=== PATIENT | male | born 1955 | race Caucasian/White ===

== ENCOUNTER 2019-04-15 07:06 | Outpatient (CLI) | payer OTHER, SELFPAY ==
[2019-04-15 08:08] LABS: Hematocrit 46.5 % (42.0-52.0); Hemoglobin 15.1 g/dL (14.0-18.0); Mean Corpuscular HGB Conc 32.5 g/dl (32-36); Mean Corpuscular Hemoglobin 30.7 pg (26-34); Mean Corpuscular Volume 94.5 fl (80-100); Mean Platelet Volume 9.6 fl (7.4-10.4); Platelet Count Result 256 k/mm3 (150-375); Red Blood Count 4.92 M/mm3 (4.6-6.20); Red Cell Distribution Width 12.3 % (11.5-14.5); White Blood Count 8.1 K/mm3 (4.5-10.0)
[2019-04-15 08:10] LABS: Alanine Aminotransferase 19 U/L (4-50); Albumin Level 4.3 g/dL (3.5-5.1); Alkaline Phosphatase 66 U/L (38-126); Aspartate Amino Transferase 24 U/L (17-59); Blood Urea Nitrogen 23 mg/dL (9-20); Calcium 9.2 mg/dL (8.4-10.2); Carbon Dioxide 27 mmol/L (22-30); Chloride 102 mmol/L (98-107); Cholesterol 130 mg/dL (0-200); Estimated Glomerular Filt Rate > 60; Glucose 96 mg/dL (75-110); HDL Direct 38 mg/dL; Potassium 4.3 mmol/L (3.4-5.0); Sodium 143 mmol/L (137-145); Triglycerides 158 mg/dL (<150)
[2019-04-15 08:19] LABS: LDL Cholesterol Direct 70 mg/dL
[2019-04-15 08:24] LABS: Free T4 Free Thyroxine 0.98 ng/mL (0.78-2.19)
== END 2019-04-15 07:07 | disposition home or self-care (01) ==
PROVIDERS: PCP Family Medicine; Visit Provider Family Medicine
DX: C13.8 Malignant neoplasm of overlapping sites of hypopharynx (principal); E78.2 Mixed hyperlipidemia; R94.6 Abnormal results of thyroid function studies
CPT/HCPCS: 36415; 80053; 80061; 84439; 84443; 85027

== ENCOUNTER 2019-11-09 07:04 | Outpatient (CLI) | payer MEDICARE, SELFPAY ==
[2019-11-09 07:53] LABS: Alanine Aminotransferase 21 U/L (4-50); Albumin Level 4.5 g/dL (3.5-5.1); Alkaline Phosphatase 62 U/L (38-126); Anion Gap 6 mmol/L (8-16); Aspartate Amino Transferase 27 U/L (17-59); Bilirubin,Total 0.7 mg/dL (0.2-1.3); Blood Urea Nitrogen 21 mg/dL (9-20); Calcium 9.1 mg/dL (8.4-10.2); Carbon Dioxide 29 mmol/L (22-30); Chloride 104 mmol/L (98-107); Cholesterol 135 mg/dL (0-200); Estimated Glomerular Filt Rate > 60; Glucose 101 mg/dL (75-110); HDL Direct 38 mg/dL; Sodium 139 mmol/L (137-145); Triglycerides 109 mg/dL (<150)
[2019-11-09 08:00] LABS: LDL Cholesterol Direct 73 mg/dL
[2019-11-09 08:20] LABS: Prostate Specific Antigen 0.5 ng/mL (< OR = 4.0)
[2019-11-09 08:30] LABS: Free T4 Free Thyroxine 0.93 ng/mL (0.78-2.19)
[2019-11-09 08:48] LABS: Potassium 4.3 mmol/L (3.4-5.0)
[2019-11-09 09:39] LABS: Free T4 Free Thyroxine Reflex 0.91 ng/dL (0.78-2.19)
[2019-11-09 11:16] LABS: Total Triiodothyronine (T3) 1.78 NG/ML (0.97-1.69)
== END 2019-11-09 07:05 | disposition home or self-care (01) ==
PROVIDERS: PCP Family Medicine; Visit Provider Family Medicine
DX: R94.6 Abnormal results of thyroid function studies (principal); Z12.5 Encounter for screening for malignant neoplasm of prostate; E78.2 Mixed hyperlipidemia
CPT/HCPCS: 36415; 80053; 80061; 84153; 84439; 84443; 84480; G0103

== ENCOUNTER 2019-12-15 07:44 | Outpatient (CLI) | payer MEDICARE, SELFPAY ==
--- NOTE | ~2019-12-15 | US_ITS ---
EXAMINATION: US aorta [facility] DATE: 12/15/2019 08:11 INDICATION: Abdominal aortic aneurysm screening with hypercholesterolemia and nicotine dependence. TECHNIQUE: Grayscale, color Doppler, and pulsed Doppler images of the aorta and common iliac arteries were obtained. COMPARISON: None. FINDINGS: The proximal aorta measures 2.4 cm. The mid aorta measures 2.3 cm. The distal aorta measures 1.8 cm.. There are scattered atherosclerotic disease in the abdominal aorta without hemodynamically significa nt stenosis. The right common iliac artery measures 1.7 cm. The left common iliac artery measures 1.6 cm. IMPRESSION: 1. Normal caliber abdominal aorta. Reviewed, dictated and finalized at location A.
== END 2019-12-15 07:45 | disposition home or self-care (01) ==
PROVIDERS: PCP Family Medicine; Visit Provider Family Medicine
DX: Z87.891 Personal history of nicotine dependence (principal)
CPT/HCPCS: 76706

== ENCOUNTER 2020-05-15 06:54 | Outpatient (CLI) | payer MEDICARE, SELFPAY ==
[2020-05-15 07:47] LABS: Alanine Aminotransferase 23 U/L (4-50); Albumin Level 4.3 g/dL (3.5-5.1); Alkaline Phosphatase 63 U/L (38-126); Anion Gap 6 mmol/L (8-16); Aspartate Amino Transferase 30 U/L (17-59); Bilirubin,Total 0.7 mg/dL (0.2-1.3); Blood Urea Nitrogen 28 mg/dL (9-20); Calcium 9.1 mg/dL (8.4-10.2); Carbon Dioxide 29 mmol/L (22-30); Chloride 107 mmol/L (98-107); Cholesterol 139 mg/dL (0-200); Estimated Glomerular Filt Rate > 60; Glucose 100 mg/dL (75-110); HDL Direct 44 mg/dL; Potassium 4.3 mmol/L (3.4-5.0); Sodium 142 mmol/L (137-145); Triglycerides 104 mg/dL (<150)
[2020-05-15 07:58] LABS: LDL Cholesterol Direct 75 mg/dL
[2020-05-15 11:41] LABS: Free T4 Free Thyroxine Reflex 0.99 ng/dL (0.78-2.19)
[2020-05-15 12:28] LABS: Total Triiodothyronine (T3) 1.83 NG/ML (0.97-1.69)
== END 2020-05-15 06:55 | disposition home or self-care (01) ==
PROVIDERS: PCP Family Medicine; Visit Provider Family Medicine
DX: R94.6 Abnormal results of thyroid function studies (principal); Z92.3 Personal history of irradiation; E78.2 Mixed hyperlipidemia
CPT/HCPCS: 36415; 80053; 80061; 84439; 84443; 84480

== ENCOUNTER 2020-08-23 15:19 | Inpatient (IN) | payer MEDICARE, SELFPAY ==
[2020-08-23] VITALS (15 sets, daily range): BP systolic 136–161; BP diastolic 84–93; PULSE 75–89; RESP 10–22; TEMP 36.6; O2SAT 96–98; BMI 25.4
--- NOTE | ~2020-08-23 | CT_ITS ---
EXAMINATION: CT brain wo con DATE: 08/23/2020 15:35 INDICATION: Confusion. Right hemiparesis. TECHNIQUE: Computed tomography (CT) of the head was performed without intravenous contrast. The mA wa s adjusted according to patient size. Iterative reconstruction technique was employed. The dose-lengt h product was 605.33 mGy-cm. COMPARISON: None FINDINGS: There is no intracranial hemorrhage, acute infarction, or abnormal intracranial mass lesion . The ventricles are normal in size. There is mucosal thickening in the paranasal sinuses with thicke mitchell and sclerosis of some of the ethmoid sinuses, consistent with chronic sinusitis. The mastoid air cells are normal. The orbits are normal. IMPRESSION: 1. Normal brain. Reviewed, dictated and finalized at location A. IMPRESSION: 1. Normal brain.
--- NOTE | ~2020-08-23 | MR_ITS ---
EXAMINATION: MR brain/brain stem wo/w con DATE: 08/24/2020 11:53 INDICATION: Transient ischemic attack. TECHNIQUE: Magnetic resonance imaging (MRI) of the brain and brainstem was performed without and with 15 mL MultiHance intravenous contrast. Sequences included sagittal and axial T1-weighted FSE, axial diffusion-weighted FS EPI, axial T2*-weighted GRE, axial T2-weighted FLAIR Propeller, and axial T2-we ighted Propeller. Postcontrast sequences included axial and coronal T1-weighted FSE. Apparent diffusi on coefficient (ADC) maps were created. COMPARISON: Head CT 08/23/2020 FINDINGS: There are patchy areas of acute infarct in the right frontal and parietal lobes and right b osvaldo ganglia. There is no intracranial hemorrhage or abnormal mass lesion. There are scattered areas of nonspecific increased T2-weighted signal intensity in the cerebral white matter, which is within n ormal limits for the patient's age. The ventricles are normal in size. There is mucosal thickening in the paranasal sinuses. There is a trace right mastoid effusion. The orbits are normal. IMPRESSION: 1. Patchy areas of acute infarct in the right frontal and parietal lobes and right basal ganglia. Reviewed, dictated and finalized at location A. IMPRESSION: 1. Patchy areas of acute infarct in the right frontal and parietal lobes and ri ght basal ganglia.
--- NOTE | ~2020-08-23 | CT_ITS ---
EXAMINATION: CTA brain carotid EXAM DATE: 08/23/2020 15:57 INDICATION: Aphasia. Right arm hemiparesis. TECHNIQUE: Noncontrast head CT. Spiral CTA of the carotid arteries was performed with intravenous i njection 100 cc of Omnipaque 350. Axial, coronal, sagittal reformatted images reviewed. Additional r eformatted images created on dedicated 3-D workstation. NASCET comparable standard used to assess th e degree of arterial stenosis. Spiral CT angiogram cerebral arteries performed with the same intrave nous injection of contrast. Source images of the brain CTA transferred to dedicated workstation for 3 -D rotational image creation. Coronal, sagittal maximum intensity pixel images also reviewed. The d ose-length product (DLP) for this examination was 1158.10 mGy-cm. The exposure was tailored accordi ng to patient size, and iterative reconstruction (ASIR) was used as additional dose reduction techniq ue. Correlation is made to noncontrast head CT same date. Correlation was made with CT neck 08/16/2010 . FINDINGS: Surgical clips next to the right internal carotid artery, could be from lymph node dissecti on but correlate with prior history. External jugular vein also appears resected. Carotid bulb is widely patent. Just distal to the right carotid bulbs there is 30% carotid stenosis. On the left there is 0% carotid stenosis. The left vertebral artery is dominant. Carotid siphons are widely patent. There is no carotid or vertebral basilar arterial dissection or fibromuscular dysplas ia. There are no cerebral artery aneurysms. There is symmetric cerebral artery arborization. The sagi ttal, transverse and sigmoid sinuses enhance normally, no venous sinus thrombosis. Internal cerebral veins also enhance normally. Incidental Findings: Right neck surgical changes. Left internal jugular chain lymphadenopathy, with a node at the level of the hyoid bone measuring 2.6 x 1.6 cm. Another necrotic smaller lymph node loc ated external to the carotid bifurcation. Asymmetric soft tissue at the left base of the tongue which could be primary squamous cell cancer or other malignancy. These findings have developed compared to a CT neck examination from 2010. IMPRESSION: 1. No acute carotid or intracranial findings. 2. Right carotid 30% stenosis just distal to the bulb. 0% left carotid stenosis. 3. Left tongue base mass with enlarged, necrotic left internal jugular chain malignant lymphadenopat hy. 4. Right neck surgical changes. Reviewed, dictated and finalized at location A. IMPRESSION: 1. No acute carotid or intracranial findings. 2. Right carotid 30% stenosis just distal to the bulb. 0% left carotid stenosi s. 3. Left tongue base mass with enlarged, necrotic left internal jugular chain m alignant lymphadenopathy. 4. Right neck surgical changes.
--- NOTE | ~2020-08-23 | XR_ITS ---
EXAMINATION: XR chest 1V portable DATE: 08/23/2020 16:01 INDICATION: Aphasia. TECHNIQUE: A single frontal view of the chest was obtained. COMPARISON: Chest CT 08/22/2010 FINDINGS: There is mild atelectasis in the lower lung zones. No pleural effusion or pneumothorax. The heart size is normal. IMPRESSION: 1. Mild atelectasis in the lower lung zones. Reviewed, dictated and finalized at location A.
--- NOTE | ~2020-08-23 | US_ITS ---
EXAMINATION: US carotid duplex BI DATE: 08/24/2020 12:14 INDICATION: Left hemiparesis. Acute right frontal lobe and parietal lobe infarcts. TECHNIQUE: Grayscale, color Doppler, and pulsed Doppler images of the cervical carotid arteries were obtained. The degree of vessel stenosis is placed in one of the following categories: normal, <50%, 5 0-69%, >=70% but less than near-occlusion, near-occlusion, or total occlusion. Note that percent sten osis relative to normal distal artery lumen diameter is indirectly measured from velocity measurement s as described by Hans, et al. Radiology 2003; 229:340-346. COMPARISON: Neck CTA 08/23/2020 FINDINGS: There are enlarged left internal jugular chain lymph nodes measuring up to 3.4 x 1.3 x 2.5 cm. RIGHT: The right common carotid artery (CCA) peak systolic velocity (PSV) is 79 cm/s. The right internal car otid artery (ICA) PSV is 178 cm/s. The right ICA end-diastolic velocity (EDV) is 50 cm/s. The right I CA/CCA PSV ratio is 2.2. Grayscale and color Doppler images yield an estimate of <50% diameter reduct ion from plaque in the ICA. There is antegrade flow in the right vertebral artery. LEFT: The left CCA PSV is 85 cm/s. The left ICA PSV is 69 cm/s. The left ICA EDV is 27 cm/s. The left ICA/C CA PSV ratio is 0.8. Grayscale and color Doppler images yield an estimate of <50% diameter reduction from plaque in the ICA. There is antegrade flow in the left vertebral artery. IMPRESSION: 1. <50% stenosis in the right internal carotid artery. 2. <50% stenosis in the left internal carotid artery. 3. Left internal jugular chain lymphadenopathy, consistent with metastatic disease. Reviewed, dictated and finalized at location A. IMPRESSION: 1. <50% stenosis in the right internal carotid artery. 2. <50% stenosis in the left internal carotid artery. 3. Left internal jugular chain lymphadenopathy, consistent with metastatic dise ase.
--- NOTE | 2020-08-23 15:27 | ECG_ITS ---
Measurements Intervals [place] Rate: 87 P: 12 OK: 142 QRS: -20 QRSD: 81 T: -3 QT: 361 QTc: 436 Interpretive Statements SINUS RHYTHM INCOMPLETE RIGHT BUNDLE BRANCH BLOCK BORDERLINE ST-T WAVE ABNORMALITY- INFERIOR LEADS BASELINE ARTIFACT- I, II, III, AVR, AVL,A VF BORDERLINE ECG Electronically Signed On 08-23-2020 15:40:23 CDT by Toni Jade D.O.
--- NOTE | 2020-08-23 15:38 | ED.NEUROSD ---
HPI - Neuro Symptoms/Deficit General Chief Complaint: Suspected CVA Stated Complaint: neuro symptoms Time Seen by Provider: 08/23/20 15:28 Source: patient Mode of arrival: ambulatory Limitations: no limitations History of Present Illness HPI Narrative: Patient is a 65-year-old male complaining of left upper extremity numbness and difficulty concentrating start approximately 1 hour prior to arrival. According to he also had some type of aphasia but now resolved. also states that he had trouble with words and identifying things 4 days ago which only lasted briefly. Patient states that he is now feeling better and that the numbness has resolved. No aphasia upon arrival to the emergency room. Patient denies any visual disturbance, focal weakness or unsteady gait. Patient denies any chest pain, shortness of breath, abdominal pain, nausea, vomiting, fever or chills. Related Data Home Medications Medication Instructions Recorded Confirmed cetirizine 10 mg PO DAILY 08/23/20 [id number] 1 cap PO DAILY 08/23/20 [MegaRed Albin-3 Krill Oil] Allergies Allergy/AdvReac Type Severity Reaction Status Date / Time No Known Allergies Allergy Verified 08/23/20 15:43 Review of Systems Review of Systems: All systems reviewed & are unremarkable except as noted in HPI and below Constitutional: Constitutional: Denies body ache(s), Denies chills, Denies excessive sweating, Denies fatigue, Denies fever(s), Denies headache(s), Denies lethargy, Denies malaise, Denies weakness and Denies weight loss Eyes: Eyes: Denies blurry vision, Denies change in vision and Denies loss of vision ENT: Denies dizziness, Denies ear discharge, Denies headache(s), Denies lip swelling, Denies epistaxis, Denies nasal congestion, Denies neck pain, Denies throat swelling and Denies tongue swelling Cardiovascular: Cardiovascular: Denies chest pain, Denies chest pain at rest, Denies chest pain with activity, Denies diaphoresis, Denies rapid heart rate, Denies edema, Denies irregular heart rhythm, Denies lightheadedness, Denies palpitations, Denies dyspnea and Denies dyspnea on exertion Respiratory: Respiratory: Denies chest congestion, Denies cough, Denies hemoptysis, Denies dyspnea and Denies dyspnea on exertion Gastrointestinal: Gastrointestinal: Denies abdominal pain, Denies melena, Denies hematochezia, Denies diarrhea, Denies nausea, Denies vomiting and Denies hematemesis Musculoskeletal: Musculoskeletal: Denies abnormal gait, Denies deformity, Denies joint swelling, Denies limited range of motion, Denies neck pain and Denies numbness Neurologic: Denies abnormal gait, Denies dizziness, Denies headache(s), Denies focal weakness, Denies loss of vision, Denies numbness, Denies Other visual disturbances, Denies Sensory deficit (Neuro) and Denies weakness Psychiatric: Psychiatric: Denies confusion, Denies depression, Denies auditory hallucinations, Denies homicidal ideation and Denies suicidal ideation Endocrine: Endocrine: Denies cold intolerance, Denies excessive sweating, Denies fatigue, Denies heat intolerance and Denies palpitations Hematologic/Lymphatic: Hematologic/Lymphatic: Denies easy bleeding and Denies easy bruising Allergic/Immunologic: Allergic/Immunologic: Denies lip swelling, Denies throat swelling and Denies tongue swelling PMFSH Past Medical History Medical History Benign essential hypertension Borderline hypothyroidism Central stenosis of spinal canal Chronic GERD Ex-smoker FHx: prostate cancer Low back pain with sciatica 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
[2020-08-23 15:39] LABS: Glucose Point of Care 107 mg/dl (65-105)
[2020-08-23 15:49] LABS: Basophils Absolute Auto 0.1 K/mm3 (0.0-0.1); Basophils Percent Auto 0.5 % (0.2-1.2); Eosinophils Absolute Auto 0.2 K/mm3 (0-0.3); Eosinophils Percent Auto 1.8 % (0-4.4); Hematocrit 45.3 % (42.0-52.0); Hemoglobin 14.9 g/dL (14.0-18.0); Immature Granulocyte Absolute 0.04 K/mm3 (0.00-0.031); Immature Granulocyte Percent A 0.4 % (0-0.5); Lymphocytes Absolute Auto 1.62 K/mm3 (0.9-3.2); Lymphocytes Percent Auto 17.8 % (18.3-44.2); Mean Corpuscular HGB Conc 32.9 g/dl (32-36); Mean Corpuscular Hemoglobin 30.7 pg (26-34); Mean Corpuscular Volume 93.2 fl (80-100); Mean Platelet Volume 9.4 fl (7.4-10.4); Monocytes Absolute Auto 0.6 K/mm3 (0.1-0.6); Monocytes Percent Auto 6.1 % (2.6-8.5); Neutrophils Absolute Auto 6.7 K/mm3 (1.3-6.7); Neutrophils Percent Auto 73.4 % (45.5-73.1); Platelet Count Result 253 k/mm3 (150-375); Red Blood Count 4.86 M/mm3 (4.6-6.20); Red Cell Distribution Width 12.2 % (11.5-14.5); White Blood Count 9.1 K/mm3 (4.5-10.0)
[2020-08-23 15:51] LABS: Estimated CRCL calculation 48 ml/min; Estimated Glomerular Filt Rate 51
[2020-08-23 16:00] LABS: Prothrombin Time 12.8 Seconds (11.1-14.7)
[2020-08-23 16:01] LABS: Partial Thromboplastin Time 23.6 SECONDS (22.3-36.8)
[2020-08-23 16:06] LABS: Anion Gap 8 mmol/L (8-16); Blood Urea Nitrogen 23 mg/dL (9-20); Calcium 9.3 mg/dL (8.4-10.2); Carbon Dioxide 28 mmol/L (22-30); Chloride 108 mmol/L (98-107); Estimated CRCL calculation 52 ml/min; Estimated Glomerular Filt Rate 55; Glucose 111 mg/dL (75-110); Potassium 4.2 mmol/L (3.4-5.0); Sodium 144 mmol/L (137-145)
[2020-08-23 16:16] LABS: Troponin I < 0.012 ng/mL (0.000-0.034)
--- NOTE | 2020-08-23 19:52 | PC.NURSE ---
called to give report at this time. was told the room was being cleaned and they would call back when it was ready.
--- NOTE | 2020-08-23 20:33 | ADMGEN ---
This patient, Enzo Del Rosario, was admitted to [facility] Surg Room 316-01. Patient/family oriented to hospital policies and general routines including ID bracelet, bed and alarms, visiting hours, pain management, procedures, bathroom and other care routines, personal items, smoking policy, room service/diet, and visiting hours. Information on how to activate the Rapid Response Team has been discussed. Patient/Family are encouraged to report perceived risks to care and to ask questions if they do not understand what they are told or what they should do.
[2020-08-23] MEDS: LACTATED RINGERS 1,000 ML 125 ML IV CONT (21:10)
--- NOTE | 2020-08-23 21:15 | PM.IMHP ---
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 Patient had a radical neck surgery on the right in the past. The patient stated that he used to take a daily aspirin and then read that it would do him any good to take a daily aspirin. However today when the patient got out of the shower he was having difficulty moving his left arm and had difficulty finding his words. He stated that these symptoms started about 60 minutes prior to coming to the emergency room. The symptoms resolved when he came to the emergency room. According to the the patient had a similar episode approximately 4 days ago. Today the patient was given a couple aspirin by his prior to coming to the emergency room. Patient had no chest pain or shortness of breath. Head and neck CTA was read as no acute carotid or intracranial findings. Right carotid 30% stenosis just distal to the bulb. 0% left carotid stenosis. Left tongue mass with enlarged necrotic left internal jugular chain malignant lymphadenopathy. Right neck surgical changes. The patient stated that he has a checkup with his oncologist next week. The patient was made aware of his CT results in the emergency room. The patient is now moving all extremities without difficulty. The patient was started on IV fluids. Chest x-ray was read as mild atelectasis in the lower lung zones. The patient is being admitted for observation status on the date of service of 08/23/2020. Chief Complaint: Left arm numbness and tingling Review of Systems Review of Systems: All systems reviewed & are unremarkable except as noted in HPI and below Constitutional: Constitutional: Reports as per HPI and Reports no additional constitutional complaints Eyes: Eyes: Reports as per HPI and Reports no additional eye complaints ENT: Reports system reviewed and no additional complaints, except as documented and Reports Normal hearing present Cardiovascular: Cardiovascular: Reports no additional cardiovascular complaints Respiratory: Respiratory: Reports no additional respiratory complaints and Reports no additional respiratory complaints Gastrointestinal: Gastrointestinal: Reports as per HPI and Reports no additional gastrointestinal complaints Musculoskeletal: Musculoskeletal: Reports no additional musculoskeletal complaints Integumentary/Breasts: Skin/Breast: Reports system reviewed and no additional complaints, except as docu and Reports as per HPI Neurologic: Reports system reviewed and no additional complaints, except as documented, Reports as per HPI and Reports Normal hearing present Psychiatric: Psychiatric: Reports no additional psychiatric complaints and Reports as per HPI Endocrine: Endocrine: Reports no additional endocrine complaints Hematologic/Lymphatic: Hematologic/Lymphatic: Reports no additional hematologic/lymphatic complaints Allergic/Immunologic: Allergic/Immunologic: Reports no additional allergic/immunologic complaints [facility] Past Medical History Medical History (Updated 08/23/20 @ 21:27 by Neela Sharma NP) Benign essential hypertension Borderline hypothyroidism Central stenosis of spinal canal Chronic GERD Ex-smoker FHx: prostate cancer Low back pain with sciatica 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
--- NOTE | 2020-08-24 | ECHO_ITS ---
Patient Info Name: Enzo Del Rosario Age: 65 years : 1955 Gender: Male Ht: 70 in Wt: 177 lbs BSA: 2.00 m2 HR: 65 bpm BP: 138 / 65 mmHg Heart Rhythm: Sinus Rhythm Technical Quality: Good Exam Date: 08/24/2020 2:31 PM Exam Location: [facility] Room: 316 Patient Status: Inpatient Admit Date: 08/23/2020 Staff Ordering Physician: Neela Sharma NP Multi Line Claims Adjuster: Karma Alston RDCS Attending Provider: Tod Chaudhry MD Referring Physician: Zachary TRACY; Exam Type: CA echo doppler w bubble study Study Info Indications - TIA Complete two-dimensional, color flow and Doppler transthoracic echocardiogram is performed with agitated saline. Contrast/Agitated Saline Contrast/Ag. Saline: Agitated Saline Amount: 20.00 ml Administered By: Rox Singh RN Existing IV Access: Yes IV Access Condition: patent with no signs of infiltration New IV Access: Inner Forearm Summary 1. Normal 2D/Doppler echocardiogram. 2. Agitated saline contrast injection demonstrated no intracardiac shunt. Left Ventricle Left ventricular chamber dimension is normal. Left ventricular systolic function is normal, estimated at 60-65%. The left ventricular diastolic function is normal. Right Ventricle Right ventricular chamber dimension is normal. Left Atria Left atrial chamber dimension is normal. Right Atria Right atrial chamber dimension is normal. Atrial Septum Intact interatrial septum visualized by agitated saline imaging. Aortic Valve The aortic valve is trileaflet. Pulmonic Valve The pulmonic valve is normal. Mitral Valve The mitral valve has normal leaflets. Tricuspid Valve The tricuspid valve leaflets are normal. Pericardium/Pleural The pericardium appears normal. Aorta The aortic root size at the sinus of Valsalva is normal. Left Ventricular Outflow Tract Name Value Normal LVOT 2D LVOT Diameter 2.1 cm LVOT Doppler LVOT Peak Gradient 4 mmHg LVOT Mean Gradient 2 mmHg LVOT VTI 23 cm LVOT VTI/AV VTI Ratio 0.9 LVOT Stroke Volume 76 ml LVOT CO 14.2 l/min LVOT CI 7.1 l/min/m2 Pulmonic Valve Name Value Normal PV Doppler PV Peak Gradient 4 mmHg Mitral Valve Name Value Normal MV Doppler MV Decel Bent 220 cm/s2 MV PHT
[2020-08-24] MEDS: LACTATED RINGERS 1,000 ML 125 ML IV CONT (05:06)
[2020-08-24 06:00] VITALS: BP 138/74; PULSE 65; RESP 18; TEMP 36.3; O2SAT 97
[2020-08-24 06:13] LABS: Basophils Absolute Auto 0.1 K/mm3 (0.0-0.1); Basophils Percent Auto 0.6 % (0.2-1.2); Eosinophils Absolute Auto 0.2 K/mm3 (0-0.3); Eosinophils Percent Auto 2.5 % (0-4.4); Hemoglobin 14.3 g/dL (14.0-18.0); Immature Granulocyte Absolute 0.03 K/mm3 (0.00-0.031); Immature Granulocyte Percent A 0.4 % (0-0.5); Lymphocytes Absolute Auto 1.52 K/mm3 (0.9-3.2); Lymphocytes Percent Auto 19.3 % (18.3-44.2); Mean Corpuscular Hemoglobin 31.2 pg (26-34); Mean Corpuscular Volume 91.5 fl (80-100); Mean Platelet Volume 9.2 fl (7.4-10.4); Monocytes Absolute Auto 0.6 K/mm3 (0.1-0.6); Monocytes Percent Auto 7.6 % (2.6-8.5); Neutrophils Absolute Auto 5.5 K/mm3 (1.3-6.7); Neutrophils Percent Auto 69.6 % (45.5-73.1); Platelet Count Result 222 k/mm3 (150-375); Red Blood Count 4.59 M/mm3 (4.6-6.20); White Blood Count 7.9 K/mm3 (4.5-10.0)
[2020-08-24 06:23] LABS: Alanine Aminotransferase 24 U/L (4-50); Albumin Level 4.1 g/dL (3.5-5.1); Alkaline Phosphatase 59 U/L (38-126); Anion Gap 7 mmol/L (8-16); Aspartate Amino Transferase 29 U/L (17-59); Bilirubin,Total 0.9 mg/dL (0.2-1.3); Blood Urea Nitrogen 17 mg/dL (9-20); Carbon Dioxide 27 mmol/L (22-30); Chloride 108 mmol/L (98-107); Estimated CRCL calculation 66 ml/min; Estimated Glomerular Filt Rate > 60; Glucose 94 mg/dL (75-110); Potassium 4.1 mmol/L (3.4-5.0); Sodium 142 mmol/L (137-145)
[2020-08-24] MEDS: ASPIRIN 81 MG ENTERIC TABLET PO (08:56)
[2020-08-24] MEDS: LORATADINE 10 MG TABLET PO (08:56)
[2020-08-24] MEDS: PANTOPRAZOLE 40 MG TABLET PO (08:56)
--- NOTE | 2020-08-24 09:37 | WPDNEURCNPN ---
Assessment and Plan Additional Plan He has had neck CTA has documented no acute carotid or intracranial findings except the right carotid 30% stenosis distal to the bulb and 0% left carotid stenosis left tongue base mass within large necrotic left internal jugular chain raising the possibility of malignant lymphadenopathy with right neck surgical change, the brain CT scan is negative, 1 could consider the possibility of the peripheral involvement of the left upper extremity but because he had the difficulties in finding the words also we could consider the possibility of TIA. Again because of the paracervical problems of malignancy consideration will be given in the long run to the possibility of the involvement of the plexus in the long run and will be re-examined Consult date: 08/24/20 Time Seen: 09:30 HPI: Enzo Del Rosario is a 65 year old male admitted to the hospital with the complaints of difficulties in using his left upper extremity and difficulties in finding the right words about 60 minutes prior to coming to the emergency room but resolved by the time he came to the ER initially mention that he had a similar episode about 4 days ago his head and neck CTA was negative with right carotid 30% stenosis just distal to bulb and 0% left carotid stenosis in addition to documentation of left tongue mass within large necrotic left internal jugular chain lymphadenopathy and the right neck surgical changes patient had been seen by the oncologist a week ago and was aware of the CT scan results he was able to move all extremities without difficulties he has history of documented carcinoma of the neck with 30 radiation treatments 6 chemotherapy sessions. In addition he has history of 1. Benign essential hypertension 2. Borderline hypothyroidism 3. Spinal canal central stenosis 4. Chronic GERD 5. Ex-smoker 6. Sciatica 7. 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 Also history of back and neck surgery and skin surgery. 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 With 30 radiation treatment and 6 chemo Mixed hyperlipidemia Neurogenic claudication Skin cancer Wellness examination Surgical History Surgical History History of back surgery History of neck surgery radical right neck surgery History of skin surgery Family History Family History Father Malignant neoplasm of prostate Family history of malignant neoplasm of bone, Onset Age: 83 Other Diabetes mellitus Hypertension Social History Social History (Updated 08/23/20 @ 21:28 by Neela Sharma NP) Social History: the patient lives with his Reema who is the durable power litigation attorney associate for healthcare. He has 1 daughter. Patient desires to be a full code. He is retired from the [employer]. Patient used to smoke many years ago. He does not use any alcohol marijuana or illicit drugs. Smoking status: Former smoker Second hand tobacco smoke exposure: No Smoking end date: 02/23/89 Alcohol intake: never Substance use: never Substance use type: does not use Gender identity (if verbalized by the patient): Male Spiritual care concerns: No Meds Home Medications and Allergies Home Medications Medication Instructions Recorded Confirmed Type diclofenac sodium 75 mg 75 mg PO BID #180 tablet 12/12/19 08/23/20 Rx tablet,delayed release meclizine 25 mg tablet 25 mg PO TID PRN #90 tablet 12/12/19 08/23/20 Rx pantopra
[2020-08-24 10:21] LABS: Free T4 Free Thyroxine Reflex 1.08 ng/dL (0.78-2.19)
[2020-08-24 11:25] LABS: Total Triiodothyronine (T3) 1.65 NG/ML (0.97-1.69)
[2020-08-24 12:33] VITALS: O2SAT 97
[2020-08-24 14:00] VITALS: BP 132/74; PULSE 72; RESP 18; TEMP 36.4; O2SAT 96
--- NOTE | 2020-08-24 15:34 | PM.IMPN ---
Progress Note: A&P Assessment and Plan (1) TIA (transient ischemic attack): Code(s): G45.9 - Transient cerebral ischemic attack, unspecified Status: Acute Assessment and Plan: MRI revealed patchy areas of acute infarct in the right frontal and parietal lobes and right basal ganglia. On aspirin 81 mg daily. He is also on atorvastatin 20 mg at bedtime would increase it to 40 mg at bedtime he takes as Vytorin with ezetimibe. Neurology consulted. Echo pending. Carotid with less than 50% stenosis in bilateral carotid arteries. Check A1c and lipid profile PT OT (2) Benign essential hypertension: Code(s): I10 - Essential (primary) hypertension Status: Acute Assessment and Plan: P.r.n. 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 The patient stated that he has an appointment with the oncologist next week. There is the finding concerning for metastatic cancer with tongue mass at the base of the tongue on his scanning. He will eat follow-up with his ENT and his oncology for further evaluation and management. (4) Other and unspecified hyperlipidemia: Code(s): E78.5 - Hyperlipidemia, unspecified Status: Inactive Assessment and Plan: Continue with home medications. Will check his lipid profile (5) Acute stroke due to ischemia: Code(s): I63.9 - Cerebral infarction, unspecified Status: Acute Subjective Date/time seen: 08/24/20 15:34 Interval history: his symptoms resolved in 40 minutes. Symptoms were on the left arm with weakness and tingling and numbness in that area. His planned to have workup with MRI and echocardiogram. Discussed other incidental but concerning findings Review of Systems Review of Systems: All systems reviewed & are unremarkable except as noted in HPI and below Exam Narrative: Exam Narrative: GENERAL: The patient is well developed, not in acute distress HEENT: Nonicteric sclerae, PERRLA, EOMI. Oropharynx clear. Moist mucous membranes. Conjunctivae appear well perfused. CHEST: Chest wall is nontender. HEART: Regular rate and rhythm without murmur, rubs, or gallops LUNGS: Clear to auscultation bilaterally. no respiratory distress ABDOMEN: Soft, positive bowel sounds, non-tender, no organomegaly. SKIN: No rash, no excessive bruising, petechiae, or purpura. NEUROLOGIC: Cranial nerves II-XII intact, alert and oriented x 3, no gross motor deficits EXTREMITIES: no edema, cyanosis or clubbing Objective Data Vital Signs Vital Signs: Vital Signs - 24 hr 08/23/20 15:37 08/23/20 17:06 08/23/20 17:31 Temperature Pulse Rate 79 75 89 Respiratory Rate 18 19 18 Blood Pressure 161/90 H 136/84 144/84 H Pulse Oximetry 98 98 98 08/23/20 17:46 08/23/20 18:46 08/23/20 19:01 Temperature Pulse Rate 86 82 81 Respiratory Rate 22 H 22 H 20 Blood Pressure 147/89 H 139/93 H 139/89 Pulse Oximetry 97 98 08/23/20 19:15 08/23/20 19:16 08/23/20 19:37 Temperature Pulse Rate 85 88 81 Respiratory Rate 18 20 18 Blood Pressure 145/92 H Pulse Oximetry 08/23/20 19:45 08/23/20 20:00 08/23/20 20:01 Temperature Pulse Rate 80 88 85 Respiratory Rate 22 H 18 17 Blood Pressure 141/93 H Pulse Oximetry 08/23/20 20:48 08/23/20 21:00 08/24/20 06:00 Temperature 97.9 F 97.4 F L Pulse Rate 86 65 Respiratory Rate 20 18 Blood Pressure 154/87 H 138/74 Pulse Oximetry 97 97 97 08/24/20 12:33 Temperature Pulse Rate Respiratory Rate Blood Pressure Pulse Oximetry 97 Intake/Output Intake/Output: Intake & Output 08/21/20 08/22/20 08/23/20 08/24/20 23:59 23:59 23:59 23:59 Intake Total 1480 Balance 1480 Meds/R
[2020-08-24 16:44] LABS: Hemoglobin A1C 5.4 % (<5.7)
[2020-08-24] MEDS: ACETAMINOPHEN 325 MG TABLET 650 MG PO (17:24)
[2020-08-24 20:00] VITALS: PULSE 64
[2020-08-24 21:27] VITALS: BP 125/85; PULSE 75; RESP 18; TEMP 36.7; O2SAT 95
[2020-08-24] MEDS: ATORVASTATIN 40 MG TABLET PO (22:39)
[2020-08-25] VITALS: PULSE 62
[2020-08-25 06:00] VITALS: BP 132/85; PULSE 67; RESP 18; TEMP 36.4; O2SAT 98
[2020-08-25 07:00] LABS: Cholesterol 169 mg/dL (0-200); HDL Direct 43 mg/dL; Triglycerides 151 mg/dL (<150)
[2020-08-25 07:10] LABS: LDL Cholesterol Direct 88 mg/dL
[2020-08-25 08:00] VITALS: PULSE 95
[2020-08-25] MEDS: ASPIRIN 81 MG ENTERIC TABLET PO (08:33)
[2020-08-25] MEDS: LORATADINE 10 MG TABLET PO (08:33)
[2020-08-25] MEDS: PANTOPRAZOLE 40 MG TABLET PO (08:33)
--- NOTE | 2020-08-25 10:46 | PM.DS ---
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 Status: Acute (5) Low back pain with sciatica: Code(s): M54.40 - Lumbago with sciatica, unspecified side Status: Acute (6) Central stenosis of spinal canal: Code(s): M48.00 - Spinal stenosis, site unspecified Status: Acute (7) Borderline hypothyroidism: Code(s): R94.6 - Abnormal results of thyroid function studies Status: Acute (8) Benign essential hypertension: Code(s): I10 - Essential (primary) hypertension Status: Acute (9) Other and unspecified hyperlipidemia: Code(s): E78.5 - Hyperlipidemia, unspecified Status: Inactive (10) Mass of tongue: Code(s): K14.8 - Other diseases of tongue Status: Acute (11) Left cervical lymphadenopathy: Code(s): R59.0 - Localized enlarged lymph nodes Status: Acute DS: Summary Hospital Course Hospital Course: this is a 65-year-old male with history of neck cancer in the past underwent extensive dissection followed by radiation and chemotherapy being followed up as an outpatient basis and had been on remission. He presented with difficulty moving his left arm with difficulty finding his words and also tingling and numbness in her in his left arm this symptom lasted about approximately 45 minutes with complete resolution. He was and admitted for TIA/stroke workup. His initial CT scan was negative. He was started on aspirin 81 mg a day along with statin. He normally takes 20 mg of atorvastatin with 10 mg of ezetimibe. Atorvastatin was increased to 40 mg. His LDL was noted to be 88 with a goal of less than 70. He was further evaluated with MRI of the brain which did reveal patchy areas of acute infarct in the right frontal parietal and basal ganglia. He was further evaluated with a carotid Doppler study which showed less than 50% stenosis in both right and left internal carotid artery incidentally he was also found to have left internal jugular chain lymphadenopathy consistent with metastatic disease. He was also evaluated with the heads neck CTA which showed no acute carotid or intracranial findings. Right carotid 30% stenosis distal to the club , 0% left carotid stenosis. There was a new left tongue base mass with enlarged necrotic left internal jugular chain the malignant lymphadenopathy noted which is new along with chronic right neck surgical changes. Neurology was consulted in the hospital stay and he was suggested to have aspirin 81 mg a day along with Plavix 75 mg a day for his stroke. Due to his new finding of tongue base mass and anticipation of a possible need for biopsy for diagnosis was discussed with him and with Neurology to keep him off of Plavix for now. He already has a follow-up appointment with his ENT coming week and possibly will be undergoing a biopsy for this mass. If he opts not to or after the biopsy is done is advised to start back on Plavix 75 mg a day. He verbalizes understanding and agrees to follow-up with ENT as well as Neurology. Echocardiogram as a part of workup for stroke was done which was normal. Status at Discharge Functional status at discharge: independent ambulation Overall status at discharge: patient is back to baseline Time Spent with Patient Time attestation: Total time spent providing and/or coordinating discharge services: 40 minutes Exam Narrative: Exam Narrative: GENERAL: The patient is well developed, no
[2020-08-25 12:00] VITALS: PULSE 80
== END 2020-08-25 13:10 | disposition home or self-care (01) | DRG 66 ==
LOC: ANHED 17:49 → ANH3MEDSUR 19:36
PROVIDERS: Emergency Medicine; Nurse Practitioner; Admitting Provider Internal Medicine; Emergency Provider Emergency Medicine; PCP Family Medicine; Visit Provider Internal Medicine
DX: I63.9 Cerebral infarction, unspecified (principal); E78.5 Hyperlipidemia, unspecified; I10 Essential (primary) hypertension; C13.8 Malignant neoplasm of overlapping sites of hypopharynx; K21.9 Gastro-esophageal reflux disease without esophagitis; M48.00 Spinal stenosis, site unspecified; M54.40 Lumbago with sciatica, unspecified side; Z87.891 Personal history of nicotine dependence; E03.9 Hypothyroidism, unspecified; K14.9 Disease of tongue, unspecified; R59.0 Localized enlarged lymph nodes
CPT/HCPCS: 36415; 70450; 70496; 70498; 70553; 71045; 80048; 80053; 80061; 82948; 83036; 83735; 84439; 84443; 84480; 84484; 85025; 85610; 85730; 93005; 93306; 93880; 96360; 96361; 96375; 99285; A9270; A9577; G0378; J7120; Q9967

== ENCOUNTER 2020-09-14 16:38 | Outpatient (CLI) | payer MEDICARE, SELFPAY ==
[2020-09-14 17:00] LABS: Add Urine Microscopic? YES; Appearance Urine Clear (Clear); Bilirubin Urine Negative (Negative); Blood Urine Negative (Negative); Color Urine Yellow (Yellow); Glucose Urine UA Negative (Negative); Ketones Urine Negative (Negative); Leukocyte Esterase Ur Negative LEU/UL (NEGATIVE); Mucus Urine Rare /lpf; Nitrate Urine Negative (Negative); Protein Urine Negative (Negative); Specific Grav Ur 1.014 (1.001-1.035); WBC Urine 0-3 /hpf (0-3)
== END 2020-09-14 16:39 | disposition home or self-care (01) ==
PROVIDERS: PCP Family Medicine; Visit Provider Family Medicine
DX: R35.0 Frequency of micturition (principal)
CPT/HCPCS: 81001

== ENCOUNTER 2020-11-24 07:11 | Outpatient (CLI) | payer MEDICARE, SELFPAY ==
[2020-11-24 08:01] LABS: Mean Corpuscular HGB Conc 32.6 g/dl (32-36); Mean Corpuscular Hemoglobin 31.7 pg (26-34); Mean Corpuscular Volume 97.3 fl (80-100); Mean Platelet Volume 9.7 fl (7.4-10.4); Platelet Count Result 250 k/mm3 (150-375); Red Blood Count 4.73 M/mm3 (4.6-6.20); Red Cell Distribution Width 12.8 % (11.5-14.5); White Blood Count 7.6 K/mm3 (4.5-10.0)
[2020-11-24 08:19] LABS: Alanine Aminotransferase 15 U/L (4-50); Albumin Level 4.5 g/dL (3.5-5.1); Alkaline Phosphatase 83 U/L (38-126); Anion Gap 6 mmol/L (8-16); Aspartate Amino Transferase 24 U/L (17-59); Bilirubin,Total 0.8 mg/dL (0.2-1.3); Blood Urea Nitrogen 17 mg/dL (9-20); Calcium 9.1 mg/dL (8.4-10.2); Carbon Dioxide 31 mmol/L (22-30); Chloride 104 mmol/L (98-107); Cholesterol 100 mg/dL (0-200); Estimated Glomerular Filt Rate > 60; Glucose 98 mg/dL (65-110); HDL Direct 29 mg/dL; Potassium 4.1 mmol/L (3.4-5.0); Sodium 141 mmol/L (137-145); Triglycerides 230 mg/dL (<150)
[2020-11-24 08:30] LABS: LDL Cholesterol Direct 46 mg/dL
[2020-11-24 08:46] LABS: Prostate Specific Antigen 0.5 ng/mL (< OR = 4.0)
== END 2020-11-24 07:12 | disposition home or self-care (01) ==
PROVIDERS: PCP Family Medicine; Visit Provider Family Medicine
DX: E78.2 Mixed hyperlipidemia (principal); E03.9 Hypothyroidism, unspecified; I10 Essential (primary) hypertension; Z12.5 Encounter for screening for malignant neoplasm of prostate
CPT/HCPCS: 36415; 80053; 80061; 84153; 84443; 85027; G0103

== ENCOUNTER 2021-05-31 09:00 | Outpatient (RCR) | payer MEDICARE, SELFPAY ==
--- NOTE | 2021-04-04 15:23 | PTOPEVAL ---
PHYSICAL THERAPY EVALUATION AND PLAN OF CARE 04-04-21 Thank you for referring Enzo Del Rosario to [facility] He is scheduled to be seen for therapy? 2 x/week for 5 weeks. Please review, sign, date and return this plan of care SANTOSH. I agree with and certify that the following plan of care is medically necessary. Referring Physician Date Attending Provider: Giovany Leger MD *PT Outpatient Evaluation Start: 04/04/21 14:06 Document 04/04/21 14:00 LINA (Rec: 04/04/21 15:23 LINA [id number]) Past Medical History Source of Past Medical History Recalled from Previous Visit, Confirmed with Patient/Family Neurological History Hx Transient Ischemic Attacks (TIA) Yes: no residual issues Hx Other Neurological Disorders Yes: vertigo Cardiovascular History Hx Hypercholesterolemia Yes: meds Respiratory History Hx Respiratory Disorders No Significant History Gastrointestinal History Hx Gastroesophageal Reflux Disease Yes Genitourinary History Hx Genitourinary Disorders No Significant History Musculoskeletal History Hx Arthritis Yes: B shoulders Hx Spinal Surgery Yes: 2017-lumbar Hematological History Hx Hematological Disorders No Significant History Endocrine History Hx Hypothyroidism Yes: monitoring- no meds HEENT History Hx Tonsillectomy Yes Evaluation Information Problem Diagnosis lymphedema Onset Feb 25, 2021 Prior Level of Function Activity Level (Last 3 Months) Occupation retired Activity of Daily Living Ability Independent Indoor/Home Mobility Independent Community Mobility Independent Stairs Ability Independent Functional Cognition (Planning, Shopping Independent , Taking Medications) Cooking Yes Cleaning Yes Laundry Yes Shopping Yes Driving Yes Home Setting Home Type House Living Situation With Spouse Mobility Assistive Devices (Used Last 3 None Months) Comments Additional Prior Level of Function reports walking 2 & 1/2 miles/ Comments day; still has some fatigue and requires rest periods, but energy is coming back; Pain Assessment Timing of Pain Assessment Timing of Pain Assessment Assessment Pain Scale Pain Scale Used Numeric (1 - 10) Self Report Pain Assessment Left Neck Reported Pain Level 5 Pain Frequency Chronic,Continuous Other Pain Description L side neck/throat hurt all
--- NOTE | 2021-04-05 09:44 | PCPTNOTE ---
pt signed consent for info to be sent to [facility] [facility] for insurance authorization for home compression pump. Faxed eval and cover sheet to [facility] [facility] Rep.
--- NOTE | 2021-05-09 10:07 | PTOPEVAL ---
PHYSICAL THERAPY RE-EVALUATION AND UPDATED PLAN OF CARE 05-09-21 Refer to the clinical summary below, for his status today, compared to the initial evaluation. The goals were partially achieved. Continue PT treatment 2x/wk for 3 weeks. Thank you for referring Enzo Del Rosario to [facility].? Please review, sign, date and return this updated plan of care SANTOSH. I agree with and certify that the following plan of care is medically necessary. Referring Physician Date Attending Provider: Giovany Leger MD Subjective Information Enzo reports: using the Query Text:As Reported By Patient/ compression night garment Family about 2 hours at time; doing self massage and exercises; more swelling in AM and end day; still eating with mostly liquid- smoothies, thinner yogurt, applesauce, soup, liquids; more thickened foods get caught and makes him cough; sometimes about 2 hr after eat, cough later and cough up some of the food; still having problems with mucous, mostly in morning and choke trying to cough it all up; weight is 173#, have been 173-176#; saw , watching carotid arteries, at about 50% blockage- taking blood thinner and cholesterol meds; is sleeping with wedge cushion; is working on getting the home pump; want to continue therapy; goal is to be able to eat more solid food and not cough or have mucous. Timing of Pain Assessment Assessment Pain Scale Pain Scale Used Numeric (1 - 10) Self Report Pain Assessment Left Neck Reported Pain Level 0 Pain Description Tightness Pain Frequency Chronic,Intermittent Lowest Pain Intensity 0 Greatest Pain Intensity 4 Pain Score Pain Score 0: Self Report Interventions Used Interventions Used By Clinicians Education,Exercise Pain Relief Interventions Used By Exercise,Position Change Patient Cervical ROM Comments active cervical ROM in sitting : rotation R 50'/L 50'- both tight, but L neck little tighter TMJ ROM Comments ope
--- NOTE | 2021-05-31 09:55 | PTOPEVAL ---
PHYSICAL THERAPY DISCHARGE 05-31-21 Refer to the clinical summary below, for his status today, compared to the last reevaluation. The goals were partially achieved. Thank you for referring Enzo Del Rosario to [facility].? Please review, sign, date and return this Discharge summary SANTOSH. I agree with and certify that the following plan of care is medically necessary. Referring Physician Date Attending Provider: Giovany Leger MD Subjective Information Enzo reports: swallowing Query Text:As Reported By Patient/ and eating are the same, Family sometimes choke and cough when eating--happens about one time a meal, but not as bad as it was; still eating soft pureed foods and thin liquids; use a straw for drinking, tends to go down better; using wedge cushion for sleeping, wear compression cap 2x/day about 1 to 1& 1/2 hr and Flexitouch machine 2 x/day ; also doing exercises and self massage; vest for the home pump is still pinching a little over the top zipper- did pad with the moon foam ( I issued him a more dense orange foam to try) kinesiotape helps; returns to the dr in August and has a repeat CT scan; Pain Assessment Pain Scale Pain Scale Used Numeric (1 - 10) Self Report Pain Assessment Left Neck Reported Pain Level 5 Pain Description Tightness Radicular Pain Location voice is worse at night-- harder to talk at night, after eat and end of day Other Pain Description tightness all the time in R and L sides of neck; Lowest Pain Intensity 0 Greatest Pain Intensity 5 Pain Score Pain Score 5: Self Report Additional Pain Score Comments still have mucous in the morning when wake up, can clear and spit it up, sometimes chokes me up a little because throat is dry; and generally after eat, have some mucous and have to go to bathroom and spit it up 1-2 x ROM active cervical rotation R 45' /L 40' reports bot
== END 2021-06-03 12:18 | disposition home or self-care (01) ==
LOC: ANHPT 09:00
PROVIDERS: PCP Family Medicine
DX: I89.0 Lymphedema, not elsewhere classified (principal)
CPT/HCPCS: 97110; 97140; 97162

== ENCOUNTER 2021-06-19 07:32 | Outpatient (CLI) | payer MEDICARE, SELFPAY ==
[2021-06-19 08:03] LABS: Hemoglobin 15.8 g/dL (14.0-18.0); Mean Corpuscular HGB Conc 32.2 g/dl (32-36); Mean Corpuscular Volume 96.3 fl (80-100); Mean Platelet Volume 9.2 fl (7.4-10.4); Platelet Count Result 227 k/mm3 (150-375); Red Blood Count 5.09 M/mm3 (4.6-6.20); Red Cell Distribution Width 12.2 % (11.5-14.5); White Blood Count 8.3 K/mm3 (4.5-10.0)
[2021-06-19 08:10] LABS: Alanine Aminotransferase 22 U/L (4-50); Albumin Level 4.7 g/dL (3.5-5.1); Alkaline Phosphatase 93 U/L (38-126); Anion Gap 6 mmol/L (8-16); Aspartate Amino Transferase 37 U/L (17-59); Bilirubin,Total 0.7 mg/dL (0.2-1.3); Blood Urea Nitrogen 22 mg/dL (9-20); Calcium 8.9 mg/dL (8.4-10.2); Carbon Dioxide 30 mmol/L (22-30); Chloride 104 mmol/L (98-107); Cholesterol 127 mg/dL (0-200); Estimated Glomerular Filt Rate > 60; Glucose 100 mg/dL (65-110); HDL Direct 39 mg/dL; Potassium 4.5 mmol/L (3.4-5.0); Sodium 140 mmol/L (137-145); Triglycerides 89 mg/dL (<150)
[2021-06-19 08:20] LABS: LDL Cholesterol Direct 63 mg/dL
[2021-06-19 13:58] LABS: Free T4 Free Thyroxine Reflex 0.81 ng/dL (0.78-2.19)
[2021-06-19 14:41] LABS: Total Triiodothyronine (T3) 2.19 NG/ML (0.97-1.69)
== END 2021-06-19 07:33 | disposition home or self-care (01) ==
LOC: ANHLAB 07:34
PROVIDERS: PCP Family Medicine; Visit Provider Family Medicine
DX: R53.83 Other fatigue (principal); R94.6 Abnormal results of thyroid function studies; E78.2 Mixed hyperlipidemia
CPT/HCPCS: 36415; 80053; 80061; 84439; 84443; 84480; 85027

== ENCOUNTER 2021-08-05 10:56 | Outpatient (RCR) | payer MEDICARE, SELFPAY ==
[2021-08-05 10:59] VITALS: BP 120/68; PULSE 84; RESP 20; TEMP 36.4; O2SAT 100
[2021-08-05] MEDS: FAMOTIDINE 20 MG TABLET PO (11:09)
[2021-08-05] MEDS: diphenhydrAMINE HCl CAP 25 MG CAPSULE PO (11:09)
[2021-08-05] MEDS: BEBTELOVIMAB 175 MG/2 ML VIAL IV PUSH (11:35)
[2021-08-05 12:07] VITALS: BP 108/70; PULSE 78; RESP 20; O2SAT 100
== END 2021-08-05 16:00 ==
LOC: AMCINF 10:56
PROVIDERS: Referring Provider Family Medicine; Visit Provider Internal Medicine Hematology & Oncology
DX: U07.1 COVID-19 (principal)
CPT/HCPCS: A9270; M0222; Q0222